=== PATIENT | female | born 1980 | race Two or more races ===

== ENCOUNTER 2024-08-25 11:21 | Emergency (ER) | payer OTHER ==
[~2024-08-25] VITALS: Ht 167.6 cm; Wt 70.3 kg
[2024-08-25] MEDS ORDERED: METOPROLOL SUC100 MG PO (12:17)
[2024-08-25] MEDS ORDERED: ALPRAZOLAM1 MG PO (12:18)
[2024-08-25] MEDS ORDERED: HYDROXYZINE PAM25 MG PO (12:18)
[2024-08-25] MEDS ORDERED: FAMOTIDINE/PF 20 MG in 0.9 % SODIUM CHLORIDE 8 ML IV PUSH STA (12:33)
[2024-08-25] MEDS ORDERED: SUCRALFATE 1 G TABLET PO ONE (12:45)
[2024-08-25] MEDS ORDERED: 0.9 % SODIUM CHLORIDE 1,000 ML IV STA (12:47)
[2024-08-25] MEDS ORDERED: FAMOTIDINE/PF 20 MG/2 ML VIAL ONE (12:48)
[2024-08-25 13:16] LABS: BASO % 0.5 % (0.1-1.2); EOS # 0.02 (0.04-0.54); EOS % 0.2 % (0.7-7.0); HEMATOCRIT 35.1 % (34.1-44.9); HEMOGLOBIN 11.7 g/dL (11.2-15.7); LYMPH # 0.92 (1.18-3.74); LYMPH % 9.6 % (19.3-53.1); MEAN CORPUSCULAR HEMOGLOBIN 26.8 pg (25.6-32.2); MONO # 0.74 (0.24-0.82); MONO % 7.8 % (4.7-12.5); NEUT # 7.78 (1.56-6.13); NEUT % 81.6 % (34.0-71.1); PLATELET COUNT 242 K/uL (163-369); RED BLOOD COUNT 4.37 M/uL (3.93-5.22); RED CELL DISTRIBUTION WIDTH 15.6 % (11.6-14.4)
[2024-08-25 13:44] LABS: ALBUMIN 3.7 gm/dL (3.4-5.0); BILIRUBIN TOTAL 1.49 mg/dL (0.3-1.2); CREATININE SERUM 0.56 mg/dL (0.55-1.02); GFR 117.07; GLOBULINA 3.6 G/DL (2.4-3.5); POTASSIUM 3.95 mEq/L (3.5-5.1); TOTAL PROTEIN 7.3 gm/dL (6.4-8.2)
[2024-08-25 14:26] LABS: URINE APPEARANCE Clear; URINE BILIRRUBIN Negative (NEGATIVE); URINE BLOOD Negative; URINE COLOR Yellow; URINE GLUCOSE Negative (NEGATIVE); URINE KETONE Negative (NEGATIVE); URINE LEUKOCYTE Negative; URINE NITRATE Negative; URINE PROTEIN Negative (NEGATIVE)
[2024-08-25 14:30] LABS: URINE BACTERIA 13.4 uL (0.0-1933); URINE EPITHELIAL CELLS 1.5 uL (0.0-38.8)
[2024-08-25 14:52] LABS: URINE RBC 1.4 uL (0.0-20.8); URINE WBC 0.7 uL (0.0-23.2)
[2024-08-25] MEDS ORDERED: KETOROLAC TROMETHAMINE 30 MG VIAL IV ONE (15:15)
[2024-08-25] MEDS ORDERED: KETOROLAC TROMETHAMINE 30 MG VIAL ONE (15:16)
== END 2024-08-25 15:29 | disposition home or self-care (01) ==
LOC: ER 11:28
PROVIDERS: Emergency Medicine
DX: R10.13 Epigastric pain (principal); I10 Essential (primary) hypertension